=== PATIENT | female | born 1950 | race Caucasian/White ===

== ENCOUNTER → 2021-03-28 10:08 | Outpatient (CLI) | payer MEDICARE, OTHER, SELFPAY ==
--- NOTE | 2021-03-28 10:24 | RAD_ITS ---
INDICATION: INFLAMMATORY POLYARTHROPATHY EXAMINATION/TECHNIQUE: X-RAY - XR Pelvis 1 or 2 Views COMPARISON: None. FINDINGS: PELVIC BONES: No displaced fracture, destructive or sclerotic lesions. Note that overlapping bowel degenerative changes visualized in the lower lumbar spine. Shadows may however obscure fine detail. Sacroiliac joints are unremarkable. No widening of the pubic symphysis. HIPS: The articular structures are unremarkable. No displaced fracture seen in this frontal view. SOFT TISSUES: No soft tissue swelling or gas. RAD/Pelvis 1 or 2 Views IMPRESSION: Degenerative changes seen most prominent in the lower lumbar vertebral bodies. No evidence of displaced pelvic or hip fracture. Electronically Signed: Mack Ennis MD at 13:10 EDT Tel , Service support ,
== END ==
LOC: MTLAB 10:16 → MTRAD 10:23
PROVIDERS: PCP Family Medicine; Referring Provider Internal Medicine Rheumatology; Visit Provider Internal Medicine Rheumatology
DX: M06.4 Inflammatory polyarthropathy (principal); M19.041 Primary osteoarthritis, right hand; M47.897 Other spondylosis, lumbosacral region; M51.37 Other intervertebral disc degeneration, lumbosacral region; K21.9 Gastro-esophageal reflux disease without esophagitis; I10 Essential (primary) hypertension; F41.9 Anxiety disorder, unspecified; Z86.61 Personal history of infections of the central nervous system
CPT/HCPCS: 72170

== ENCOUNTER → 2022-02-15 | Outpatient (CLI) | payer MEDICARE, OTHER, SELFPAY ==
--- NOTE | 2022-02-15 15:30 | RAD_ITS ---
EXAM: XR LUMBOSACRAL SPINE, 2 OR 3 VIEWS CLINICAL INDICATION: LOW BACK PAIN TECHNIQUE: Frontal and lateral views of the lumbar spine and sacrum. This report was created using [employer] report [employer] technology. COMPARISON: None. FINDINGS: VERTEBRAE: Moderate scoliosis of the lumbar spine convex to the left measuring 23 degrees centered at L3-L4. Bilateral multilevel facet arthropathy. Preserved vertebral body height. No fracture. No spondylolisthesis. DISC SPACES: Diffuse spondylitic changes throughout the lumbar spine with vacuum phenomenon at L1-L2, L3-L4, L4-L5, and L5-S1. GASTROINTESTINAL TRACT: Unremarkable as visualized. Included bowel gas pattern is non-obstructive. RAD/Lumbar Spine 2 or 3 Views IMPRESSION: 1. Moderate scoliosis of the lumbar spine convex to the left measuring 23 degrees centered at L3-L4. 2. Extensive degenerative changes throughout the lumbar spine. No specific acute abnormality identified. Electronically Signed: Aashish Guidry MD at 3:51 EDT ,
== END | disposition home or self-care (01) ==
PROVIDERS: PCP Family Medicine; Referring Provider Anesthesiology Pain Medicine; Visit Provider Anesthesiology Pain Medicine
DX: M41.86 Other forms of scoliosis, lumbar region (principal); M47.817 Spondylosis without myelopathy or radiculopathy, lumbosacral region; M47.816 Spondylosis without myelopathy or radiculopathy, lumbar region
CPT/HCPCS: 72100

== ENCOUNTER → 2022-09-27 | Outpatient (CLI) | payer MEDICARE, SELFPAY ==
[2022-09-27 17:28] LABS: Absolute Lymphocyte Count 1.88 X10^3/uL (0.83-4.51); Absolute Neutrophil Count 6.1 X10^3/uL (2.0-7.7); Basophil# 0.08 X10^3/uL; Basophil% 0.9 % (0-1); Eosinophil# 0.15 X10^3/uL; Eosinophils% 1.7 % (0-5); Hematocrit 42.6 % (37-47); Hemoglobin 14.8 g/dL (12.0-15.0); Lymphocyte # 1.88 X10^3/ul (0.83-4.51); Lymphocyte % 20.8 % (19-41); Mean Corp Hgb Conc 34.7 g/dL (32-36); Mean Corpuscular Hgb 34.7 pg (27.0-32.0); Mean Platelet Vol. 9.7 fl (6.2-12.0); Monocyte# 0.83 X10^3/uL; Monocyte% 9.2 % (0-10); NRBC Flagged by Analyzer 0 % (0-5); Neutrophil # 6.07 X10^3/uL (2.7-7.7); Platelet Count 362 K/mm3 (150-450); RBC Distribution Width CV 14.1 % (11.6-14.6); RBC Distribution Width SD 52.8 fl (35.1-43.9); Red Blood Count 4.26 M/mm3 (4.2-5.4); White Blood Count 9.1 K/mm3 (4.4-11.0)
[2022-09-27 18:07] LABS: AST(SGOT) 18 U/L (15-37); Alanine Aminotransfer ALT/SGPT 22 U/L (13-56); Albumin, Serum 3.5 g/dL (3.2-5.0); Alkaline Phosphatase 61 U/L (45-117); Anion Gap 9 (5-15); BUN 22 mg/dL (7-18); BUN/Creat Ratio 34.3 RATIO (10-20); Calcium,Total 9.1 mg/dL (8.5-10.1); Chloride 103 mmol/L (98-107); Creatinine, Serum 0.64 mg/dL (0.55-1.02); EST Glomerular Filtration Rate 96 mL/min (>60); Est Glom Filt Rate - Afr Amer 117 mL/min (>60); Globulin 3.5 g/dL (2.2-4.2); Glucose 85 mg/dL (74-106); Potassium 4.2 mmol/L (3.5-5.1); Sodium Level 136 mmol/L (136-145)
== END | disposition home or self-care (01) ==
LOC: MTLAB 14:45
PROVIDERS: PCP Family Medicine; Visit Provider Internal Medicine Rheumatology
DX: M06.4 Inflammatory polyarthropathy (principal); Z79.899 Other long term (current) drug therapy
CPT/HCPCS: 36415; 80053; 85025

== ENCOUNTER 2024-09-19 05:45 | Day surgery (SDC) | payer MEDICARE, SELFPAY ==
[2024-09-19] VITALS (10 sets, daily range): BP systolic 114–141; BP diastolic 66–99; PULSE 68–78; RESP 16–22; TEMP 36.1–36.9; O2SAT 93–97; BMI 24.5
--- NOTE | 2024-09-19 06:30 | RAD_ITS ---
PROCEDURE: RIGHT TOES (FOREFOOT) WITH MOBILE C-ARM IN THE OPERATING ROOM REASON FOR EXAM: EXOSTECTOMY AND ARTHROPLASTY. TECHNIQUE: Four (4) view(s) of right foot. COMPARISON: No relevant prior available for comparison. FINDINGS: Several images were obtained intraoperatively. Metallic K-wires project over the 2nd metatarsal. RAD/Toe(s) Min 2 Views IMPRESSION: 1. Images obtained intraoperatively as noted above. For further detail of the procedure please see postoperative report. Fluoro: 17 sec Dose: 0.0811 mGy Reading Location: [facility]
--- NOTE | 2024-09-19 06:38 | PCM.PRE.AN2 ---
ASA Classification* ASA Classification ASA Classification: 2 Assessment & Plan Anesthesia* Anesthesia Assessment Anesthesia Assessment: Discussed sedation and/or anesthesia options, risks, benefits, and alternatives with patient/parents/legal guardian/POA. Questions invited. The patient/parents/legal guardian/POA seems to understand and agrees to proceed with anesthesia plan. Reviewed the physical assessment, medical history, allergy history and patient home medications list prior to surgery/procedure/anesthetic and documented any changes. Performed airway and anesthesia risk assessments. Anesthesia Type Anesthesia Type: General Anesthesia Focused Assessment* Temperature: 97 F Pulse Rate: 74 Blood Pressure: 139/81 Respiratory Rate: 16 Pulse Ox: 95 Airway Assessment Mouth opens: >3 cm Mallampati Score: II Focused Labs Anesthesia Preop lab: CBC WBC 9.1 K/mm3 (4.4-11.0) 09/27/22 14:52 09/27/22 RBC 4.26 M/mm3 (4.2-5.4) 09/27/22 14:52 09/27/22 Hgb 14.8 g/dL (12.0-15.0) 09/27/22 14:52 09/27/22 Hct 42.6 % (37-47) 09/27/22 14:52 09/27/22 Plt Count 362 K/mm3 (150-450) 09/27/22 14:52 09/27/22 CHEMISTRY Potassium 4.2 mmol/L (3.5-5.1) 09/27/22 14:52 09/27/22 Sodium 136 mmol/L (136-145) 09/27/22 14:52 09/27/22 BUN 22 mg/dL (7-18) H 09/27/22 14:52 09/27/22 Creatinine 0.64 mg/dL (0.55-1.02) 09/27/22 14:52 09/27/22 Glucose 85 mg/dL (74-106) 09/27/22 14:52 09/27/22 COAG Pre-Assessment Diagnosis/Proposed Procedure Planned Operative Procedure(s): RIGHT EXOSTECTOMY REMOVAL OF BONE FROM THE RIGHT FIRST AND SECOND DIGITS Anesthesia History Anesthesia History - credit products officer: Anesthesia History - credit products officer Hx Hospitalization No 09/05/24 11:15 Any Problems With Anesthesia No 09/05/24 11:15 Cholinesterase deficiency No 09/05/24 11:15 You/Your Family Experience No 09/05/24 11:15 fever (hyperthermia) with Relationship Recent Exposure to Contagious No 09/19/24 06:29 Disease Does patient have nerve No 09/05/24 11:15 stimulator Patient instructed to have device shut off --Does patient have Pacemaker No 09/19/24 06:29 or ICD? When Was Last Pacemaker Check QUESTION #4 FULL TEXT: You/Your Family Experience fever (hyperthermia) with Anesthesia Last Oral Intake Last Oral intake: Last Oral Intake NPO since 04:30 09/19/24 06:29 Meds taken in AM with sips of Yes 09/19/24 06:29 water? Meds patient instructed to SEE MAR 09/19/24 06:29 take am of surgery PONV PONV - credit products officer: PONV - credit products officer Female Yes 09/05/24 11:15 HX of Motion Sickness Yes 09/05/24 11:15 HX of N/V After Surgery No 09/05/24 11:15 Non-Smoker Yes 09/05/24 11:15 Duration of Surgery greater Yes 09/05/24 11:15 than 60 minutes Number of Risk Factors 4 09/05/24 11:15 PONV Score Severe Risk 09/05/24 11:15 Height & Weight Height & Weight: Anesthesia: Height & Weight Height 5 ft 6 in 09/19/24 06:29 Weight: 68.946 kg 09/19/24 06:29 Body Mass Index (BMI) 24.5 09/19/24 06:29 Respiratory Assessment Respiratory Assessment - credit products officer: Respiratory Tract Infection Hx - credit products officer Hx Respiratory Tract Infection No 09/05/24 11:15 STOP Sleep Apnea STOP Sleep Apnea - credit products officer: STOP Sleep Apnea - credit products officer Hx Hypertension Yes: CONTROLLED WITH MED 09/05/24 11:15 Hx Sleep Apnea No 09/05/24 11:15 CPAP BIPAP Do you snore loudly (louder No 09/05/24 11:15 than talking or can be heard Do you often feel tired/ No 09/05/24 11:15 fatigued/ sleepy during daytime? Has anyone observed you stop No 09/05/24 11:15 breathing during sleep? STOP Results Negative 09/05/24 11:15 QUESTION #5 FULL TEXT : Do you snore loudly (louder than talking or can be heard through closed doors)? Tobacco Use History Tobacco Use History - credit products officer: Tobacco Use History - credit products officer Tobacco Use Smoking Status Never smoker 09/05/24 11:15 Hx Tobacco Use No 09/05/24 11:15 Years Smoking Packs Smoked per Day Smoking Cessation Date was within the last 15 years Hx Smoking Cessation Date Hx Smoking Cessation Counseling Hematologic Medial History Hematologic Hx - credit products officer: Hematologic Medical Hx - director of anesthesia services Hx of Blood Transfusion No 09/05/24 11:15 Hx of Transfusion in last 3 No 09/05/24 11:15 Months Date of Last Transfusion (if within last 3 months) Ever experience any problems No 09/05/24 11:15 with transfusion(s)? Specify any problems Hx of Preganancy in last 3 No 09/05/24 11:15 Months Nurse Filling Out Transfusion DSCHRIBER 09/05/24 11:15 & Questions: Date: 09/05/24 09/05/24 11:15 Time: 11:16 09/05/24 11:15 Patient unable to answer at this time (ie. confused, unrespo /Reproduction History /Reproductive History - credit products officer: /Reproductive Hx- credit products officer Hx Now No 09/05/24 11:15 Gestational Age (in weeks): EDC: Hx Hx Para Hx Section SAB No 09/05/24 11:15 Active Medications Active Medications: Current Medications Generic Name Dose Route Start Last Admin Trade Name Freq PRN Reason Stop Dose Admin Cefazolin Sodium 2 gm/ N/A 20 mls @ 400 mls/hr 09/19/24 07:30 IV 09/19/24 07:32 PREOP ONE [facility] Medical History Wears hearing aid Wears glasses Post-menopausal Cancer Depression Anxiety Alcohol use Rheumatoid arthritis Bladder disease Low iron High cholesterol Back pain Blackout History of IBS Gastric reflux Non-smoker History of pain when walking History of stress test Hypertension Chest pain Hx of encephalitis Injury of head and neck Home Medications ?Medication ?Instructions ?Recorded ?Last Taken ?Type bupropion HCl 150 mg 24 hr tablet, 150 mg PO DAILY 09/05/24 09/19/24 History extended release calcium carbonate 500 mg PO QHS PRN PRN dyspepsia 09/05/24 Unknown History calcium carbonate 600 mg PO DAILY 09/05/24 Unknown History cholecalciferol (vitamin D3) 125 125 mcg PO DAILY 09/05/24 Unknown History mcg (5,000 unit) tablet (Vitamin D3) diphenhydramine HCl 50 mg capsule 100 mg PO QHS 09/05/24 Unknown History estradiol 1 mg tablet (Estrace) 1 mg PO DAILY 09/05/24 Unknown History ferrous sulfate 325 mg (65 mg 325 mg PO DAILY LOW IRON 09/05/24 Unknown History iron) tablet (Feosol) fluoxetine 40 mg capsule 40 mg PO DAILY 09/05/24 09/19/24 History folic acid 1 mg tablet 2 mg PO DAILY 09/05/24 Unknown History losartan 50 mg tablet 50 mg PO BID 09/05/24 09/19/24 History medroxyprogesterone 5 mg tablet 5 mg PO DAILY 09/05/24 Unknown History (Provera) melatonin 10 mg disintegrating 50 mg PO QHS 09/05/24 Unknown History tablet meloxicam 7.5 mg tablet 7.5 mg PO TUTHSA 09/05/24 Unknown History methotrexate sodium 2.5 mg tablet 15 mg PO PERRY 09/05/24 Unknown History omeprazole 40 mg capsule,delayed 40 mg PO QHS 09/05/24 Unknown History release oxybutynin chloride 10 mg 10 mg PO DAILY 09/05/24 09/19/24 History tablet,extended release 24 hr vitamin B complex 1 tab PO DAILY 09/05/24 Unknown History hydrocodone-acetaminophen 5-325mg 1 - 2 tab PO Q6H PRN pain 3 days 09/19/24 Unknown Rx 5mg-325mg #20 tabs Allergy/AdvReac Type Severity Reaction Status Date / Time latex Allergy Intermediate Rash Verified 09/19/24 06:28 Surgical History Hx of right cataract extraction Hx of left cataract extraction Hx of colonoscopy History of dental surgery Hx of dilation and curettage Hx of eye surgery Hx of foot surgery Hx of foot surgery Social History Smoking Status: Never smoker Review of Systems (Anesthesia) ROS Narrative System reviewed and no additional complaints, except as documented.
--- NOTE | 2024-09-19 06:44 | PRE.ANES_ITS ---
ASA Classification* ASA Classification ASA Classification: 2 Assessment & Plan Anesthesia* Anesthesia Assessment Anesthesia Assessment: Discussed sedation and/or anesthesia options, risks, benefits, and alternatives with patient/parents/legal guardian/POA. Questions invited. The patient/parents/legal guardian/POA seems to understand and agrees to proceed with anesthesia plan. Reviewed the physical assessment, medical history, allergy history and patient home medications list prior to surgery/procedure/anesthetic and documented any changes. Performed airway and anesthesia risk assessments. Anesthesia Type Anesthesia Type: MAC (LMA as backup) History Source History Obtained from:: Patient, Chart and Significant Other (spouse) Anesthesia Focused Assessment* Temperature: 97 F Pulse Rate: 74 Blood Pressure: 139/81 Respiratory Rate: 16 Pulse Ox: 95 Oxygen Delivery Method: Room Air Airway Assessment Mouth opens: >3 cm Mallampati Score: II Teeth Condition: Intact and Caps/Crowns Focused Labs Anesthesia Preop lab: CBC WBC 9.1 K/mm3 (4.4-11.0) 09/27/22 14:52 09/27/22 RBC 4.26 M/mm3 (4.2-5.4) 09/27/22 14:52 09/27/22 Hgb 14.8 g/dL (12.0-15.0) 09/27/22 14:52 09/27/22 Hct 42.6 % (37-47) 09/27/22 14:52 09/27/22 Plt Count 362 K/mm3 (150-450) 09/27/22 14:52 09/27/22 CHEMISTRY Potassium 4.2 mmol/L (3.5-5.1) 09/27/22 14:52 09/27/22 Sodium 136 mmol/L (136-145) 09/27/22 14:52 09/27/22 BUN 22 mg/dL (7-18) H 09/27/22 14:52 09/27/22 Creatinine 0.64 mg/dL (0.55-1.02) 09/27/22 14:52 09/27/22 Glucose 85 mg/dL (74-106) 09/27/22 14:52 09/27/22 COAG Pre-Assessment Diagnosis/Proposed Procedure Planned Operative Procedure(s): RIGHT EXOSTECTOMY REMOVAL OF BONE FROM THE RIGHT FIRST AND SECOND DIGITS Anesthesia History Anesthesia History - web content & social media manager: Anesthesia History - web content & social media manager Hx Hospitalization No 09/05/24 11:15 Any Problems With Anesthesia No 09/05/24 11:15 Cholinesterase deficiency No 09/05/24 11:15 You/Your Family Experience No 09/05/24 11:15 fever (hyperthermia) with Relationship Recent Exposure to Contagious No 09/19/24 06:29 Disease Does patient have nerve No 09/05/24 11:15 stimulator Patient instructed to have device shut off --Does patient have Pacemaker No 09/19/24 06:29 or ICD? When Was Last Pacemaker Check QUESTION #4 FULL TEXT: You/Your Family Experience fever (hyperthermia) with Anesthesia Last Oral Intake Last Oral intake: Last Oral Intake NPO since 04:30 09/19/24 06:29 Meds taken in AM with sips of Yes 09/19/24 06:29 water? Meds patient instructed to SEE MAR 09/19/24 06:29 take am of surgery PONV PONV - web content & social media manager: PONV - web content & social media manager Female Yes 09/05/24 11:15 HX of Motion Sickness Yes 09/05/24 11:15 HX of N/V After Surgery No 09/05/24 11:15 Non-Smoker Yes 09/05/24 11:15 Duration of Surgery greater Yes 09/05/24 11:15 than 60 minutes Number of Risk Factors 4 09/05/24 11:15 PONV Score Severe Risk 09/05/24 11:15 Height & Weight Height & Weight: Anesthesia: Height & Weight Height 5 ft 6 in 09/19/24 06:29 Weight: 68.946 kg 09/19/24 06:29 Body Mass Index (BMI) 24.5 09/19/24 06:29 Respiratory Assessment Respiratory Assessment - web content & social media manager: Respiratory Tract Infection Hx - web content & social media manager Hx Respiratory Tract Infection No 09/05/24 11:15 STOP Sleep Apnea STOP Sleep Apnea - web content & social media manager: STOP Sleep Apnea - web content & social media manager Hx Hypertension Yes: CONTROLLED WITH MED 09/05/24 11:15 Hx Sleep Apnea No 09/05/24 11:15 CPAP BIPAP Do you snore loudly (louder No 09/05/24 11:15 than talking or can be heard Do you often feel tired/ No 09/05/24 11:15 fatigued/ sleepy during daytime? Has anyone observed you stop No 09/05/24 11:15 breathing during sleep? STOP Results Negative 09/05/24 11:15 QUESTION #5 FULL TEXT : Do you snore loudly (louder than talking or can be heard through closed doors)? Tobacco Use History Tobacco Use History - web content & social media manager: Tobacco Use History - web content & social media manager Tobacco Use Smoking Status Never smoker 09/05/24 11:15 Hx Tobacco Use No 09/05/24 11:15 Years Smoking Packs Smoked per Day Smoking Cessation Date was within the last 15 years Hx Smoking Cessation Date Hx Smoking Cessation Counseling Hematologic Medial History Hematologic Hx - web content & social media manager: Hematologic Medical Hx - retail area manager Hx of Blood Transfusion No 09/05/24 11:15 Hx of Transfusion in last 3 No 09/05/24 11:15 Months Date of Last Transfusion (if within last 3 months) Ever experience any problems No 09/05/24 11:15 with transfusion(s)? Specify any problems Hx of Preganancy in last 3 No 09/05/24 11:15 Months Nurse Filling Out Transfusion DSCHRIBER 09/05/24 11:15 & Questions: Date: 09/05/24 09/05/24 11:15 Time: 11:16 09/05/24 11:15 Patient unable to answer at this time (ie. confused, unrespo /Reproduction History /Reproductive History - web content & social media manager: /Reproductive Hx- web content & social media manager Hx Now No 09/05/24 11:15 Gestational Age (in weeks): EDC: Hx Hx Para Hx Section SAB No 09/05/24 11:15 Active Medications Active Medications: Current Medications Generic Name Dose Route Start Last Admin Trade Name Freq PRN Reason Stop Dose Admin Cefazolin Sodium 2 gm/ N/A 20 mls @ 400 mls/hr 09/19/24 07:30 IV 09/19/24 07:32 PREOP ONE [facility] Medical History Wears hearing aid Wears glasses Post-menopausal Cancer Depression Anxiety Alcohol use Rheumatoid arthritis Bladder disease Low iron High cholesterol Back pain Blackout History of IBS Gastric reflux Non-smoker History of pain when walking History of stress test Hypertension Chest pain Hx of encephalitis Injury of head and neck Home Medications ?Medication ?Instructions ?Recorded ?Last Taken ?Type bupropion HCl 150 mg 24 hr tablet, 150 mg PO DAILY 02/2009/19/24 History extended release calcium carbonate 500 mg PO QHS PRN PRN dyspep lorna 09/05/24 Unknown History calcium carbonate 600 mg PO DAILY 09/05/24 Unk nown History cholecalciferol (vitamin D3) 125 125 mcg PO DAILY 02/20 Unknown History mcg (5,000 unit) tablet (Vitamin D3) diphenhydramine HCl 50 mg capsule 100 mg PO QHS Unknown History estradiol 1 mg tablet (Estrace) 1 mg PO DAILY 09/05/24 Unknown History ferrous sulfate 325 mg (65 mg 325 mg PO DAILY LOW IRON 09/05/24 Unknown History iron) tablet (Feosol) fluoxetine 40 mg capsule 40 mg PO DAILY 09/05/2408/31 History folic acid 1 mg tablet 2 mg PO DAILY 09/05/24 Unkno wn History losartan 50 mg tablet 50 mg PO BID 09/05/24 History medroxyprogesterone 5 mg tablet 5 mg PO DAILY 09/05/24 Unknown History (Provera) melatonin 10 mg disintegrating 50 mg PO QHS 09/05/24 U nknown History tablet meloxicam 7.5 mg tablet 7.5 mg PO TUTHSA 09/05/24 Un known History methotrexate sodium 2.5 mg tablet 15 mg PO PERRY 09/05/24 Unknown History omeprazole 40 mg capsule,delayed 40 mg PO QHS 09/05/24 Unknown History release oxybutynin chloride 10 mg 10 mg PO DAILY 09/05/2408/31 History tablet,extended release 24 hr vitamin B complex 1 tab PO DAILY 09/05/24 Unkn own History Allergy/AdvReac Type Severity Reaction Status Date / Time latex Allergy Intermediate Rash Verified 09/19/24 06:28 Surgical History Hx of right cataract extraction Hx of left cataract extraction Hx of colonoscopy History of dental surgery Hx of dilation and curettage Hx of eye surgery Hx of foot surgery Hx of foot surgery Social History Smoking Status: Never smoker Review of Systems (Anesthesia) ROS Narrative System reviewed and no additional complaints, except as documented.
--- NOTE | 2024-09-19 07:30 | DCINST_ITS ---
Discharge Instructions Diet Discharge Diet: Light diet - advance as tolerated DC O2, CPAP, BIPAP needs Home O2 Discharge instructions: No Dressing / Incision Discharge Activity: May Not Drive and Use Walker Weight Bearing Status: Partial weight bearing (Ok to put weight on right heel. Avoid weight on the toes on right foot) Keep extremity elevated above heart level: Operative Extremity (Keep right foot elevated with pillows as much as possible) Dressing / Incision Call your doctor if your incision/area has: Continuous Slow Oozing, Sudden Increased Bleeding and Foul Smelling Discharge Call your doctor if you observe: Fever of 101 or Higher, Shortness of breath, Chest pain, Increased palpitations (irregular heartbeat), Calf discomfort and Uncontrolled pain Change Dressing in: do not change dressing Remove Dressing in: do not remove dressing Cleanse incision/area with: Keep Dressing Clean & Dry Follow Up Care Please Follow Up With: Red Man DPM When: Next week in office, sooner if needed Test Results: Test results from this visit will be discussed in further detail at your follow- up appointment, if applicable. Discharge Plan Admission Attending Provider: Red Man Primary Care Provider: Александр Owens Instructions Print Language: Icelandic Discharge Orders/Prescriptions Prescriptions: New hydrocodone-acetaminophen 5-325 mg tablet 1 - 2 tab PO Q6H PRN (Reason: pain) 3 Days Qty: 20 0RF No Action bupropion HCl 150 mg tablet extended release 24 hr 150 mg PO DAILY calcium carbonate 600 mg calcium (1,500 mg) tablet 600 mg PO DAILY cholecalciferol (vitamin D3) [Vitamin D3] 125 mcg (5,000 unit) tablet 125 mcg PO DAILY vitamin B complex Tablet 1 tab PO DAILY diphenhydramine HCl 50 mg capsule 100 mg PO QHS estradiol [Estrace] 1 mg tablet 1 mg PO DAILY Rx Instructions: off 1 week; repeat cycle ferrous sulfate [Feosol] 325 mg (65 mg iron) tablet 325 mg PO DAILY fluoxetine 40 mg capsule 40 mg PO DAILY folic acid 1 mg tablet 2 mg PO DAILY losartan 50 mg tablet 50 mg PO BID medroxyprogesterone [Provera] 5 mg tablet 5 mg PO DAILY meloxicam 7.5 mg tablet 7.5 mg PO TUTHSA methotrexate sodium 2.5 mg tablet 15 mg PO PERRY Patient Comments: [NO ORIGINAL SIG] omeprazole 40 mg capsule,delayed release(DR/EC) 40 mg PO QHS oxybutynin chloride 10 mg tablet extended release 24hr 10 mg PO DAILY calcium carbonate 500 mg calcium (1,250 mg) tablet,chewable 500 mg PO QHS PRN PRN (Reason: dyspepsia) melatonin 10 mg tablet,disintegrating 50 mg PO QHS Referrals / Follow Up: Александр Owens MD [Primary Care Provider] - Disposition Disposition (needs filled in before D/C Order can be placed): Home, Self Care
--- NOTE | 2024-09-19 07:30 | BON_PTH ---
PATIENT: ARUN LARSON LOC: [facility] [place] U#:[id number] AGE/SX: 74/F ROOM: RE09/19/[address]: Dr. Red Man DPM : 1950 BED: DIS: 09/19/2024 SPEC #: [id number] RECD: 09/19/24 10:08 STATUS: SOPHIA KATIE #: [id number] RADHIKA: 09/19/24 07:[address]: Red Man DEPT: SURGICAL PATHOLOGY RECD BY: Jayne Ayala ENTERED: 09/19/24 10:40 SP TYPE: Bone OTHR DR: Dr. Александр Owens MD Tissues: Bone of foot, NOS Procedures: Decalcification bone/plaque Surgery Specimen Level IV HEADER OPERATION: Exostectomy with removal of bone from right first and second toe PRE-OP DIAGNOSIS: Right 3rd hammertoe, exocytosis right 1st and 2nd toe TISSUE SUBMITTED: Bone of right 1st, 2nd, 3rd MICROSCOPIC DIAGNOSIS Bone of right 1st, 2nd, and 3rd toes, exostectomy: Pieces of bone with reactive changes, clinically hammer toe and exocytosis. ELY. 09/24/2024 MICROSCOPIC DESCRIPTION Slides are reviewed. GROSS DESCRIPTION Received in fixative is one container labeled with the patient's name and designated Bone of right 1st, 2nd, and 3rd toes. The specimen consists of multiple pieces of bone measuring in aggregate 3.5 x 2.5 x 0.6cm. The entire specimen is submitted in two cassettes after decalcification. 09/19/2024 TC:5 CPT:13895,96853
[2024-09-19] MEDS: Cefazolin 2 GM in Syringe IV (07:35)
[2024-09-19] MEDS: Bupivacaine Mpf 0.5% 30 ML VIAL (07:45)
[2024-09-19] MEDS: Lidocaine 1% (20 ml mdv) 20 ML Vial (07:45)
--- NOTE | 2024-09-19 09:03 | PCM.OPRPT ---
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 University Dean: Vicky Tasks completed by lead recreation assistant: Opening & closing and Retracting Type of Anesthesia: Local MAC RN Documented Start/Stop Times: Operation Date: 09/19/24 07:30 Case Time Into Pre-Op 09/19/24 06:10 Out of Pre-Op 09/19/24 07:26 Anesthesia Start 09/19/24 07:27 Into Room 09/19/24 07:27 Procedure Start 09/19/24 07:48 Procedure End 09/19/24 08:58 Anesthesia End 09/19/24 09:03 Out of Room 09/19/24 09:03 Into Recovery 09/19/24 09:05 Procedure Start Time: 07:48 Procedure Stop Time: 08:58 Select all DRAINS/GRAFTS/IMPLANTS that apply: None Estimated Blood Loss: 1 mL Specimen collected: Yes Description of specimen(s) removed: Bone from right 1st, 2nd and 3rd toes sent to pathology Description of surgery: Indications: 74 year old female with history of previous right foot surgery has hammer toes of 2nd and 3rd toes with exostosis of 1st and 2nd toes on right foot causing signifcant pain and symptoms. This persists despite nonsurgical care. She elected to proceed with surgical intervention. Reviewed procedures, possible benefits vs risks, goals, expectations and estimated healing time. All of her questions were answered. She has been cleared from medical and rheumatology standpoint to proceed with surgical intervention. Operative Procedure: Patient was brought back to the operating room and was placed on the operating room in the supine position. A safety belt was placed around her waist to carefully secure her to the operating room table. The patient received 2g of IV Ancef for antibiotic prophylaxis. A well padded pneumatic tourniquet was applied around her right ankle. A timeout was performed and the patient was properly identified and surgical plan was confirmed. The patient received MAC anesthesia per the anesthesia team. The skin on her right foot was cleansed with 70% Isopropyl alcohol and a total of 13 mL of a 50/50 mixture of 1% Lidocaine plain and 0.5% Bupivacaine plain was given as a local nerve block to right 1st, 2nd and 3rd toes. The patient's right foot was scrubbed, prepped and draped in the usual aseptic fashion. Further attention was directed to her right foot and there was noted to be a significant callus formation to the medial 2nd toe with 1st and 2nd toes deviated into each other with bone prominence at level of callus which corresponded at level of interphalangeal joint of the hallux. The right 3rd toe was contracted as well and was deviated into 2nd toe which contributed towards pushing 2nd toe into 1st toe. The patient's right foot was exsanguinated using an Esmarch bandage and the right ankle pneumatic tourniquet was inflated to 250mmHg. Right 1st toe exostectomy: A linear longitudinal skin incision was made overlying the dorsal aspect of the interphalangeal joint of the 1st toe lateral to the extensor hallucis longus tendon. Careful dissection was completed down to the bone of the head of the proximal phalanx and base of the distal phalanx on the lateral aspect. The bone was prominent at this site and was resected using a powered sagittal saw. The bone was hard and appeared viable. The remaining bone was now smooth and now not prominent. The site was flushed with copious amounts of normal saline solution. The tissues were noted to be healthy and viable. The subcutaneous tissue was reapproximated using 4-0 Vicryl and the skin was reapproximated using 4-0 Monocryl. Right 2nd toe exostectomy: A linear longitudinal skin incision was made overlying the dorsal medial aspect of the 2nd toe medial to the extensor hallucis longus tendon. Careful dissection was completed down to the prominent bone on the medial aspect. The bone was prominent at this site and was resected using a powered sagittal saw. The bone was hard and appeared viable. The remaining bone was now smooth and now not prominent. The site was flushed with copious amounts of normal saline solution. The tissues were noted to be healthy and viable. The subcutaneous tissue was reapproximated using 4-0 Vicryl and the skin was reapproximated using 4-0 Monocryl. Arthroplasty right 3rd toe: Further attention was directed to 3rd toe and it was a hammer toes. Two converging semi elliptical skin incisions were made overlying the dorsal proximal interphalangeal joint. The skin was excised. An incision was made transversely to the extensor digitorum longus tendon at the dorsal proximal interphalangeal joint and was reflected off of the head of the proximal phalanx. The joint capsule of the proximal interphalangeal joint and collateral ligaments of the joint were released using a 15 blade. The head of the proximal phalanx was excised using a powered sagittal saw, and the resected bone was sent to pathology with the rest of the bone from above. The site was flushed with copious amounts of normal saline solution. The tissues were noted to be healthy and viable. The extensor digitorum longus tendon was reapproximated using 4-0 Vicryl and the skin was reapproximated using 4-0 Nylon. The toe was now in a rectus position. An additional 9mL of 0.5% Bupivacaine plain was given as a nerve block to right 1st, 2nd and 3rd toes to help with post operative pain management. Cavilon was painted to the incision sites of the 1st and 2nd toes and steristrips were applied. The right ankle tourniquet was deflated (total time inflated was 56 minutes) and there was immediate return of warmth and perfusion to right foot and all toes. CFT < 2 seconds to all toes. A dressing was applied which consisted of Betadine soaked adaptic, 4x4 gauze, Kerlix and suleiman dressing. The patient tolerated the above procedures well and anesthesia well with no complications. The patient was transported from the operating room to the recovery room with vital signs stable and in good condition. Post operative orders were placed. Post operative instructions have been reviewed with patient (and her who was with her) both verbal and written instructions also provided. The patient is going to follow up in office next week, sooner if needed. Surgical Findings: As noted above Complications Complications: No
--- NOTE | 2024-09-19 09:08 | PCM.POST.ANE ---
Anesthesia: Postop Eval I Current Vital Signs Temperature: 98.4 F Pulse Rate: 75 Blood Pressure: 141/99 Respiratory Rate: 22 Pulse Ox: 96 Oxygen Delivery Method: Room Air Assessment Airway patent: Yes Spontaneous unlabored respirations: Yes Mental status: Awake and Calm nausea: No Vomiting: No Anesthesia Complication: No Fluid Hydration Crystalloid volume administer (ml): 600 Total IV fluid infused: 600 Progress Note Anesthesia document: Postop Eval 1 completed: Yes
--- NOTE | 2024-09-19 09:28 | RAD_ITS ---
PROCEDURE: RIGHT FOOT, THREE VIEWS REASON FOR EXAM: Postop. TECHNIQUE: Three view(s) of right foot COMPARISON: Earlier study dated 09/19/2024 in the operating room. FINDINGS: RIGHT FOOT: No visible fracture. Suspect osteotomies involving the 1st, 2nd, and 3rd proximal phalanges. Fractured K-wire adjacent to the 2nd metatarsal. Normal alignment. Soft tissues are unremarkable. RAD/Foot min 3 Views IMPRESSION: 1. Osteotomies are suspected as detailed above. 2. Fractured K-wire. Reading Location: [facility]
--- NOTE | 2024-09-19 12:03 | POSTOPAN2_ITS ---
Anesthesia Postop Eval I Sum Postop Eval Completion status Anesthesia document: Postop Eval 1 completed: Yes Anesthesia Postop Eval I Summary Anesthesia Postop Eval I Summary: Anesthesia Postop Eval I: Assessment Summary Airway patent Yes 09/19/24 09:09 RECORD [email or web address] Spontaneous unlabored Yes 09/19/24 09:09 RECORD [email or web address] respirations Mental status Awake,Calm 09/19/24 09:09 [email or web address] [email or web address] nausea No 09/19/24 09:09 RECORD [email or web address] [email or web address] Vomiting No 09/19/24 09:09 RECORD [email or web address] Anesthesia Postop Eval I: Fluid Summary Crystalloid volume administer 600 09/19/24 09:09 [email or web address] (ml) Colloids volume administered ( ml) Blood Product volume administered (ml) Total IV fluid infused 600 09/19/24 09:09 RECORD [email or web address] Anesthesia Postop Eval I: Summary Notes Anesthesia Complication No 09/19/24 09:09 RECORD [email or web address] Anesthesia Complication Comment: Post-operative progress note Anesthesia: Postop Eval II Evaluation Mental status: Awake Pain Level: 1 nausea: No Vomiting: No
--- NOTE | 2024-09-19 12:03 | PCM.POSTANE2 ---
Anesthesia Postop Eval I Sum Postop Eval Completion status Anesthesia document: Postop Eval 1 completed: Yes Anesthesia Postop Eval I Summary Anesthesia Postop Eval I Summary: Anesthesia Postop Eval I: Assessment Summary Airway patent Yes 09/19/24 09:09 [email or web address] Spontaneous unlabored Yes 09/19/24 09:09 [email or web address] respirations Mental status Awake,Calm 09/19/24 09:09 [email or web address] nausea No 09/19/24 09:09 [email or web address] [email or web address] Vomiting No 09/19/24 09:09 [email or web address] Anesthesia Postop Eval I: Fluid Summary Crystalloid volume administer 600 09/19/24 09:09 [email or web address] (ml) Colloids volume administered ( ml) Blood Product volume administered (ml) Total IV fluid infused 600 09/19/24 09:09 [email or web address] Anesthesia Postop Eval I: Summary Notes Anesthesia Complication No 09/19/24 09:09 [email or web address] Anesthesia Complication Comment: Post-operative progress note Anesthesia: Postop Eval II Evaluation Mental status: Awake Pain Level: 1 nausea: No Vomiting: No
== END 2024-09-19 10:50 | disposition home or self-care (01) ==
LOC: SDC 05:47 → AC 05:51
PROVIDERS: PCP Family Medicine; Referring Provider Podiatrist; Visit Provider Podiatrist
PROC: (CPT 28153; principal; 2024-09-19 07:15)
DX: M20.41 Other hammer toe(s) (acquired), right foot (principal); M06.9 Rheumatoid arthritis, unspecified; I10 Essential (primary) hypertension; K21.9 Gastro-esophageal reflux disease without esophagitis; D64.9 Anemia, unspecified; F41.9 Anxiety disorder, unspecified; R55 Syncope and collapse
CPT/HCPCS: 28153; 28285; 28124; 01480; 73630; 73660; 76000; 88305; 88311; A4216; J2405